=== PATIENT | female | born 1955 | race Caucasian/White ===

== ENCOUNTER 2017-03-19 16:12 | Emergency (ER) | payer BC ==
[2017-03-19 16:23] VITALS: O2SAT 98
[2017-03-19] MEDS ORDERED: DEXAMETHASONE 10 MG/ML VIAL IVP ONE (16:34)
[2017-03-19] MEDS ORDERED: NS 1,000 ML IV ONE (16:34)
[2017-03-19] MEDS ORDERED: METOCLOPRAMIDE 10 MG/2 ML VIAL IVP ONE (16:34)
--- NOTE | 2017-03-19 16:36 | EDPHY ---
H & P Time Seen by Provider: 03/19/17 16:34 HPI/ROS: CHIEF COMPLAINT: Dehydration, headache, vomiting. HISTORY OF PRESENT ILLNESS: This patient is a 61 year old female complaining of migraine headache and associated vomiting onset this morning. She arrived in [place] on Saturday from [place] to look at houses with her . This morning, she woke up with a headache and took Excedrin and had caffeinated tea. This did not relieve her symptoms, so she took Zomig. 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 She developed severe right-sided head pain with associated nausea and dizziness. Strong perfume and the motion of the car made her symptoms worse, so she took a second Zomig. She continued to feel ill and vomited three times at a [employer]. She has not had any food since 7am, but has had a few sips of Gatorade. Currently, her symptoms remain severe. She endorses photophobia. She had a history of similar migraine headaches. She denies numbness or weakness in arms or legs, fever, or other associated symptoms. REVIEW OF SYSTEMS: A 10 point review of systems was performed and is negative with the exception of the elements mentioned in the history of present illness. Past Medical/Surgical History: Migraine headaches Social History: Nonsmoker, no alcohol use. at bedside. Visiting from [place]. Smoking Status: Never smoked Physical Exam: General Appearance: Alert, pleasant, appears uncomfortable Eyes: Pupils equal and round, no conjunctival pallor or injection ENT, Mouth: Mucous membranes moist Neck: Normal inspection Respiratory: Lungs are clear to auscultation Cardiovascular: Regular rate and rhythm Gastrointestinal: Abdomen is soft and non-tender Neurological: Alert, oriented x3, cranial nerves II through XII intact, motor 5 /5, sensory intact to light touch Skin: Warm and dry, no rash Extremities: Nontender, no pedal edema Psychiatric: Mood and affect normal Constitutional: Initial Vital Signs Temperature (C) 36.3 C 03/19/17 16:20 Heart Rate 75 03/19/17 16:20 Respiratory Rate 18 03/19/17 16:20 Blood Pressure 179/109 H 03/19/17 16:20 O2 Sat (%) 98 03/19/17 16:20 O2 Delivery Mode Room Air Allergies/Adverse Reactions: No Known Allergies Allergy (Unverified 03/19/17 16:20) Home Medications: Medication Instructions Recorded Exedrin 03/19/17 Zomig 03/19/17 Medical Decision Making ED Course/Re-evaluation: This patient presents with a typical migraine headache. Neurologic exam is normal and I do not suspect an alternative etiology for her headache. Reglan, Benadryl and Decadron IV given. 17:29 Reassessed. Feeling better, but still has headache. Toradol 15 mg IV given. 1815: Feels much better and wants to go home. Headache is nearly completely resolved. Differential Diagnosis: Headache including but not limited to subarachnoid hemorrhage, migraine headache , tension headache and infectious causes such as meningitis, pharyngitis and sinusitis. - Data Points Medications Given: Discontinued Medications Dexamethasone (Decadron Injection) 10 mg IVP EDNOW ONE Stop: 03/19/17 16:35 Last Admin: 03/19/17 16:56 Dose: 10 mg Diphenhydramine HCl (Benadryl Injection) 25 mg IVP EDNOW ONE Stop: 03/19/17 16:35 Last Admin: 03/19/17 16:56 Dose: 25 mg Sodium Chloride (Ns) 1,000 mls @ 0 mls/hr IV ONCE ONE; Wide Open PRN Reason: Protocol Stop: 03/19/17 16:35 Last Admin: 03/19/17 16:56 Dose: 1,000 mls Ketorolac Tromethamine (Toradol) 15 mg IVP EDNOW ONE Stop: 03/19/17 17:30 Last Admin: 03/19/17 17:44 Dose: 15 mg Ketorolac Tromethamine (Toradol) 15 mg IVP EDNOW ONE Stop: 03/19/17 17:42 Last Admin: 03/19/17 17:43 Dose: 15 mg Metoclopramide HCl (Reglan Injection) 10 mg IVP EDNOW ONE Stop: 03/19/17 16:35 Last Admin: 03/19/17 16:56 Dose: 10 mg Departure - Departure Disposition: Home, Routine, Self-Care Clinical Impression: Migraine headache Qualifiers: Migraine type: without aura Status migrainosus presence: without status migrainosus Intractability: not intractable Qualified Code(s): G43.009 - Migraine without aura, not intractable, without status migrainosus Condition: Good Instructions: Migraine Headache (ED) Additional Instructions: Return for worsening symptoms or any concerns. Referrals: Omari Teixeira MD [Medical Doctor] - As per Instructions Report Scribed for: Steff Wing Report Scribed by: Jessy Kaur Date of Report: 03/19/17 Time of Report: 16:36 Physician Review and Approval Statement: 03/19/17 16:36 Portions of this note were transcribed by a medical records specialist. I personally performed a history, physical exam, medical decision making, and confirmed accuracy of information the transcribed note.
[2017-03-19] MEDS ORDERED: KETOROLAC 15 MG/1 ML SDV IVP ONE ×2 (17:29→17:41)
[2017-03-19 17:44] VITALS: RESP 16
[2017-03-19 18:27] VITALS: BP 122/76; PULSE 81; TEMP 98.1
== END 2017-03-19 18:39 | disposition home or self-care (01) ==
DX: G43.009 Migraine without aura, not intractable, without status migrainosus (principal); E86.9 Volume depletion, unspecified
CPT/HCPCS: 96374; J1100; J1200; J1885; J2765